=== PATIENT | female | born 1950 | race Caucasian/White ===

== ENCOUNTER 2017-08-27 16:09 | Emergency (ER) | payer MEDICARE, MEDICAID ==
[~2017-08-27] VITALS: Ht 157.5 cm; Wt 45.4 kg
[~2017-08-27 16:09] MED LIST: DONE5TAB28 PO; ESCI10TA53 PO; ESCI20TA51 PO; ESTR2TAB PO; FOLI1TAB6 PO; HYDR-3682 PO; HYDR25TA4 PO; IBUP600T27 PO; LORA2TAB10 PO; METH2.5T3 PO; MIRT15TA63 PO; OXYB5SYP4 PO; PANT40T PO; TOPI100T68 PO
[2017-08-27 18:40] VITALS: BP 96/56
== END 2017-08-27 18:46 | disposition home or self-care (01) ==
LOC: ER 16:11
DX: N39.0 Urinary tract infection, site not specified (principal); R07.89 Other chest pain; Z90.49 Acquired absence of other specified parts of digestive tract; Z90.710 Acquired absence of both cervix and uterus; Z79.899 Other long term (current) drug therapy; Z88.0 Allergy status to penicillin; Z88.2 Allergy status to sulfonamides; Z91.041 Radiographic dye allergy status
CPT/HCPCS: 71101; 74176

== ENCOUNTER 2020-09-01 18:39 | Emergency (ER) | payer MEDICARE, MEDICAID ==
[~2020-09-01] VITALS: Ht 157.5 cm; Wt 50.3 kg
[~2020-09-01 18:39] MED LIST changes: -DONE5TAB28 PO; +DONE5TAB31 PO; -LORA2TAB10 PO; +LORA2TAB12 PO; +METH2.5T PO; -METH2.5T3 PO; -MIRT15TA63 PO; +MIRT1TAB14 PO
[2020-09-01 18:56] VITALS: BP 100/63
[2020-09-01 21:23] LABS: Hematocrit 40.3 % (36.0-46.0); Hemoglobin 13.2 g/dL (12.2-16.2); Mean Corpuscular Hemoglobin 31.4 pg (28.0-32.0); Mean Corpuscular Hgb Conc. 32.7 g/dL (32.0-36.0); Mean Corpuscular Volume 96.2 fL (80.0-100.0); Platelet Count (auto) 310 10^3/uL (140-450); Red Blood Cells 4.19 10^6/uL (4.0-5.20); Red Cell Distribution Width 16.3 % (11.8-14.3); White Blood Cell 5.2 10^3/uL (4.4-10.8)
[2020-09-01 21:28] LABS: Band Neutrophils % (manual) 0; Basophils % (manual) 0 (0.0-2.0); Blast Cells 0; Eosinophils % (manual) 0 (0-7); Metamyelocytes % 0; Myelocytes % 0; Promyelocytes % 0; Reactive Lymphocytes 0
[2020-09-01 21:36] LABS: Lymphocytes % (manual) 63 (10.0-50.0); Monocytes % (manual) 6 (0-12)
[2020-09-01 21:37] LABS: INR 0.96 (0.9-1.15)
[2020-09-01 21:49] LABS: Albumin 3.4 g/dL (3.4-5.0); BUN/Creatinine Ratio 23.2; Calcium 8.5 mg/dL (8.5-10.1); Potassium 3.3 mmol/L (3.5-5.1)
[2020-09-01 21:52] LABS: Bilirubin, Total 0.3 mg/dL (0.2-1.0)
== END 2020-09-01 21:36 | disposition left against medical advice (07) ==
LOC: ER 18:40
DX: M79.662 Pain in left lower leg (principal); M79.661 Pain in right lower leg; Z53.21 Procedure and treatment not carried out due to patient leaving prior to being seen by health care provider
CPT/HCPCS: 36415; 80053; 83880; 85007; 85027; 85610; 93970